=== PATIENT | male | born 1975 | race Caucasian/White ===

== ENCOUNTER 2016-11-05 12:24 | Emergency (ER) | payer OTHER ==
[~2016-11-05] VITALS: Ht 180.3 cm; Wt 120.0 kg
[~2016-11-05 12:24] MED LIST: IBUP800T23 PO; LORTA5 PO
[2016-11-05 12:25] VITALS: BP 140/90; PULSE 89; RESP 15; TEMP 98.4; O2SAT 99
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
[2016-11-05] MEDS ORDERED: CYCL5TAB PO (13:02)
[2016-11-05] MEDS ORDERED: IBUP800T23 PO (13:02)
== END 2016-11-05 13:22 | disposition home or self-care (01) ==
LOC: NEPD 12:24
DX: S29.012A Strain of muscle and tendon of back wall of thorax, initial encounter (principal); V89.2XXA Person injured in unspecified motor-vehicle accident, traffic, initial encounter
CPT/HCPCS: 99283

== ENCOUNTER 2016-11-10 20:26 | Emergency (ER) | payer OTHER ==
[~2016-11-10] VITALS: Ht 177.8 cm; Wt 110.0 kg
[~2016-11-10 20:26] MED LIST changes: +CYCL5TAB PO; -LORTA5 PO
[2016-11-10 20:27] VITALS: BP 133/85; PULSE 102; RESP 15; TEMP 99.3; O2SAT 97
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
== END 2016-11-11 00:50 | disposition home or self-care (01) ==
LOC: NEPK 20:26
DX: S16.1XXD Strain of muscle, fascia and tendon at neck level, subsequent encounter (principal); G44.309 Post-traumatic headache, unspecified, not intractable; Z88.0 Allergy status to penicillin; V49.9XXA Car occupant (driver) (passenger) injured in unspecified traffic accident, initial encounter
CPT/HCPCS: 70450; 72125; 99285